=== PATIENT | female | born 1990 | race Two or more races ===

== ENCOUNTER 2016-09-15 11:26 | Emergency (ER) | payer BC ==
[~2016-09-15] VITALS: Ht 157.5 cm; Wt 68.9 kg
[2016-09-15] MEDS ORDERED: ACETAMINOPHEN 500 MG TAB PO ONE (12:30)
[2016-09-15 15:00] VITALS: BP 129/70
== END 2016-09-15 15:35 | disposition home or self-care (01) ==
LOC: ER 11:26
DX: O26.891 Other specified pregnancy related conditions, first trimester (principal); M54.5 Low back pain; Z3A.01 Less than 8 weeks gestation of pregnancy; V49.9XXA Car occupant (driver) (passenger) injured in unspecified traffic accident, initial encounter; Y93.89 Activity, other specified; Y92.89 Other specified places as the place of occurrence of the external cause; Y99.8 Other external cause status
CPT/HCPCS: 36415; 76801; 76817; 81002; 84702

== ENCOUNTER → 2017-07-15 | Emergency (ER) | payer BC, MEDICAID | END | disposition left against medical advice (07) | LOC: ER 03:38 | DX: R10.9 Unspecified abdominal pain (principal); Z53.21 Procedure and treatment not carried out due to patient leaving prior to being seen by health care provider ==